=== PATIENT | female | born 1980 | race Caucasian/White ===

== ENCOUNTER 2017-04-04 19:56 | Emergency (ER) | payer SELFPAY ==
[2017-04-04 20:11] VITALS: BP 99/71; PULSE 85; RESP 16; TEMP 99.4; O2SAT 100
[2017-04-04] MEDS ORDERED: Sodium Chloride 0.9% 1,000 ML IV STA (20:21)
[2017-04-04 20:48] LABS: RBC URINE 4 /hpf (0-3); URINE BACTERIA FEW (<OCC); URINE BILIRUBIN NEGATIVE (NEGATIVE); URINE BLOOD LARGE (NEGATIVE); URINE COLOR COLORLESS (YELLOW); URINE GLUCOSE (UA) NEG (Normal); URINE KETONE NEGATIVE (NEGATIVE); URINE LEUKOCYTE ESTERASE NEG Leu/uL (Negative); URINE PROTEIN NEGATIVE (NEGATIVE); URINE UROBILINOGEN 0.2-1.0 mg/dL (0.2-1.0); WBC URINE 1 /hpf (0-5)
--- NOTE | 2017-04-04 20:48 | ED PDOC ---
HPI: General Adult Time Seen by Provider: 04/04/17 20:14 Chief Complaint (Nursing): Headache Chief Complaint (Provider): Flu-Like Symptoms History Per: Patient History/Exam Limitations: no limitations Onset/Duration Of Symptoms: Days (x5) Have you had recent travel within the past 21 days to any of the following countries: [place], [place], [place] or [place]?: No Other Location:: Traveled to [place] x1 month ago Current Symptoms Are (Timing): Still Present Additional Complaint(s): 36 year old female presents to ED with complaints of flu-like symptoms x5 days and has no past medical history. (+) subjective fever, chills, body aches, headache, stiffness in neck and upper back, and numbness in tips of extremities. 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 Notes that she travelled from [facility] x1 month ago. Denies sick contacts or other travel. PCP: [facility] Past Medical History Reviewed: Historical Data, Nursing Documentation, Vital Signs Vital Signs: Last Vital Signs Temp 99.4 F 04/04/17 20:08 Pulse 85 04/04/17 20:08 Resp 16 04/04/17 20:08 BP 99/71 L 04/04/17 20:08 Pulse Ox 100 04/04/17 20:55 - Medical History PMH: No Chronic Diseases - Family History Family History: States: Unknown Family Hx - Home Medications Home Medications: Ambulatory Orders Medication Instructions Recorded Cyclobenzaprine [Flexeril] 5 mg PO BID PRN #10 tab 04/03/15 Ibuprofen [Motrin Tab] 800 mg PO TID PRN #30 tab 04/03/15 Oxycodone HCl/Acetaminophen 1 tab PO Q6 PRN #12 tab 04/03/15 [Percocet 325 mg-5 mg] Naproxen 375 mg PO Q8 PRN #21 tab 12/25/15 - Allergies Allergies/Adverse Reactions: Allergies Allergy/AdvReac Type Severity Reaction Status Date / Time No Known Allergies Allergy Verified 04/04/17 20:08 Review of Systems ROS Statement: Except As Marked, All Systems Reviewed And Found Negative Constitutional: Positive for: Fever (Subjective), Chills, Other (body aches) Musculoskeletal: Positive for: Back Pain (Stiffness in upper back) Neurological: Positive for: Numbness (in tips of upper and lower extremities), Headache Physical Exam - Reviewed Nursing Documentation Reviewed: Yes Vital Signs Reviewed: Yes - Physical Exam Appears: Positive for: Well, Non-toxic Skin: Positive for: Normal Color Eye Exam: Positive for: Normal appearance ENT: Positive for: Normal ENT Inspection Neck: Positive for: Normal (No meningismus), Supple Cardiovascular/Chest: Positive for: Regular Rate, Rhythm. Negative for: Murmur Respiratory: Positive for: Normal Breath Sounds. Negative for: Respiratory Distress Gastrointestinal/Abdominal: Positive for: Normal Exam Back: Positive for: Normal Inspection Extremity: Positive for: Normal ROM. Negative for: Deformity Neurologic/Psych: Positive for: Alert, Oriented - Laboratory Results Result Diagrams: 04/04/17 20:40 04/04/17 20:40 - ECG O2 Sat by Pulse Oximetry: 100 (RA) Pulse Ox Interpretation: Normal Medical Decision Making Medical Decision Makin Initial impression: viral illness, not suspecting meningitis Initial plan: * Labs * Flexeril 10mg PO * NS IV * Reglan 10mg IVP * Toradol 10mg IVP * Influenza A B * UA * Re-eval 2AM: Pt' continued to have GONGORA, CT brain ordered which was negative. 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 Valium IV improved pain minimally, 2mg mophine ordered for patient comfort. Pt. reported resolutions of symptoms. at bedside explained that patient has been over-exerting herself for the past 2 days. Return precautions given, will d/c home. Scribe Attestation: Documented by Lois Schroeder acting as a scribe for Abhay Tapia MD. Scribe Attestation: All medical record entries made by the Scribe were at my direction and personally dictated by me. I have reviewed the chart and agree that the record accurately reflects my personal performance of the history, physical exam, medical decision making, and the department course for this patient. I have also personally directed, reviewed, and agree with the discharge instructions and disposition. Disposition - Clinical Impression Clinical Impression: Headache, Muscle cramp, nocturnal - Disposition Referrals: [facility] [Outside] Disposition: Routine/Home Disposition Time: 02:20 Condition: STABLE
[2017-04-04 20:49] LABS: BASO % 0.6 % (0.0-2.0); EOS # 0.1 K/uL (0.0-0.7); EOS % 1.5 % (0.0-4.0); LYMPH # 1.9 K/uL (1.0-4.3); LYMPH % 25.4 % (20.0-40.0); MEAN CELL VOLUME 91.3 fl (81.0-99.0); MEAN CORPUSCULAR HGB CONC 32.8 g/dL (33.0-37.0); MEAN PLATELET VOLUME 8.1 fl (7.2-11.7); MONO # 0.5 K/uL (0.0-0.8); MONO % 6.1 % (0.0-10.0); NEUT % 66.4 % (50.0-75.0); RED CELL DISTRIBUTION WIDTH 13.1 % (11.5-14.5); WHITE BLOOD COUNT 7.5 K/uL (4.8-10.8)
[2017-04-04 21:00] LABS: BLOOD UREA NITROGEN 7 mg/dl (7-17); CALCIUM 8.5 mg/dL (8.4-10.2); CARBON DIOXIDE 25 mmol/L (22-30); CHLORIDE 105 mmol/L (98-107); GFR AFRICAN-AMERICAN > 60; GLUCOSE,RANDOM 95 mg/dL (65-105); POTASSIUM 3.3 MMOL/L (3.6-5.0); SODIUM 138 mmol/l (132-148)
[2017-04-04] MEDS ORDERED: DiphenhydrAMINE 50 mg/ml Inj ONE (23:43)
[2017-04-04] MEDS ORDERED: DiphenhydrAMINE 50 mg/ml Inj IVP STA (23:46)
[2017-04-04] MEDS ORDERED: Promethazine 25 MG in Sodium Chloride 0.9% 50 ML IVPB STA (23:50)
[2017-04-05] MEDS ORDERED: diaZEpam 10 mg/2 ml Inj ONE (00:23)
--- NOTE | 2017-04-05 09:14 | CT ---
PROCEDURE: CT HEAD WITHOUT CONTRAST. HISTORY: L sided GONGORA COMPARISON: None available. TECHNIQUE: Axial computed tomography images were obtained through the head/brain without intravenous contrast. Radiation dose: Total exam DLP = 737 mGy-cm. This CT exam was performed using one or more of the following dose reduction techniques: Automated exposure control, adjustment of the mA and/or kV according to patient size, and/or use of iterative reconstruction technique. FINDINGS: HEMORRHAGE: No intracranial hemorrhage. BRAIN: No mass effect or edema. No atrophy or chronic microvascular ischemic changes. VENTRICLES: Unremarkable. No hydrocephalus. CALVARIUM: Unremarkable. PARANASAL SINUSES: Mild paranasal sinus mucoperiosteal thickening. MASTOID AIR CELLS: Unremarkable as visualized. No inflammatory changes. OTHER FINDINGS: None. IMPRESSION: No acute hemorrhage.
== END 2017-04-05 02:34 | disposition home or self-care (01) ==
LOC: H.ER 19:56
DX: R51 Headache (principal); R25.2 Cramp and spasm; R20.2 Paresthesia of skin; R50.9 Fever, unspecified; M54.9 Dorsalgia, unspecified; B34.9 Viral infection, unspecified
CPT/HCPCS: 70450; 80048; 81003; 81025; 85025; 87804; 96361; 96374; 96375; 99285; J1200; J1885; J2550; J2765; J7040

== ENCOUNTER 2017-07-06 14:59 | Observation (INO) | payer SELFPAY ==
[2017-07-06 15:16] VITALS: PULSE 78; RESP 16; O2SAT 98
[2017-07-06 15:54] VITALS: TEMP 99
[2017-07-06] MEDS ORDERED: Sodium Chloride 0.9% 1,000 ML IV STA (16:05)
[2017-07-06] MEDS ORDERED: Iohexol 240 (50 ml) PO ONE (16:05)
--- NOTE | 2017-07-06 16:18 | ED PDOC ---
HPI: Back Time Seen by Provider: 07/06/17 15:50 Chief Complaint (Nursing): Back Pain Chief Complaint (Provider): Back Pain, Chest Pain, Abdominal Pain History Per: Patient History/Exam Limitations: no limitations Current Symptoms Are (Timing): Still Present Additional Complaint(s): Bret Faulkner, a 36 year old female, presents to the ED complaining of back pain that radiates to her lower abdomen x1 day. The patient also states that she has also had some dysuria and frequency. The patient also reports that she has been experiencing chest pain and bilateral calf pain associated with nausea x8 days. Patient states that she has taken no medications for pain. Denies vomiting, diarrhea, vision changes, fever. No PMD Past Medical History Reviewed: Historical Data, Nursing Documentation, Vital Signs Vital Signs: Last Vital Signs Temp 99 F 07/06/17 15:13 Pulse 78 07/06/17 15:13 Resp 16 07/06/17 15:13 BP 120/71 07/06/17 15:13 Pulse Ox 98 07/06/17 15:13 - Medical History PMH: No Chronic Diseases - Family History Family History: States: Unknown Family Hx - Home Medications Home Medications: Ambulatory Orders Medication Instructions Recorded Cyclobenzaprine [Flexeril] 5 mg PO BID PRN #10 tab 04/03/15 Ibuprofen [Motrin Tab] 800 mg PO TID PRN #30 tab 04/03/15 Oxycodone HCl/Acetaminophen 1 tab PO Q6 PRN #12 tab 04/03/15 [Percocet 325 mg-5 mg] Naproxen 375 mg PO Q8 PRN #21 tab 12/25/15 - Allergies Allergies/Adverse Reactions: Allergies Allergy/AdvReac Type Severity Reaction Status Date / Time No Known Allergies Allergy Verified 04/04/17 20:08 Review of Systems ROS Statement: Except As Marked, All Systems Reviewed And Found Negative Constitutional: Negative for: Fever Eyes: Negative for: Vision Change Cardiovascular: Positive for: Chest Pain (x8 days) Gastrointestinal: Positive for: Nausea, Abdominal Pain. Negative for: Vomiting , Diarrhea, Constipation Genitourinary Female: Positive for: Dysuria, Frequency Musculoskeletal: Positive for: Back Pain (back pain radiating to lower abdomen x1 day), Other (bilateral calf pain) Neurological: Positive for: Dizziness Physical Exam - Reviewed Nursing Documentation Reviewed: Yes Vital Signs Reviewed: Yes - Physical Exam Appears: Positive for: Non-toxic, No Acute Distress Head Exam: Positive for: ATRAUMATIC, NORMAL INSPECTION, NORMOCEPHALIC Skin: Positive for: Normal Color, Warm, Dry Eye Exam: Positive for: Normal appearance, EOMI, PERRL ENT: Positive for: Normal ENT Inspection Neck: Positive for: Normal, Painless ROM, Supple Cardiovascular/Chest: Positive for: Regular Rate, Rhythm, Chest Non Tender. Negative for: Murmur, Tachycardia Respiratory: Positive for: Normal Breath Sounds. Negative for: Rales, Rhonchi, Wheezing, Respiratory Distress Gastrointestinal/Abdominal: Positive for: Bowel Sounds, Soft, Tenderness (mild abdominal tenderness). Negative for: Mass, Guarding, Rebound Back: Negative for: Normal Inspection (mild upper back tenderness), L CVA Tenderness, R CVA Tenderness Extremity: Positive for: Normal ROM, Calf Tenderness (mild calf tenderness; no erythema; no edema). Negative for: Tenderness, Pedal Edema, Deformity, Swelling - Laboratory Results Result Diagrams: 07/06/17 16:10 07/06/17 16:57 Interpretation Of Abn Labs: urine wbc - ECG ECG: Positive for: Interpreted By Me, Viewed By Me ECG Rhythm: Positive for: Normal QRS, Normal ST Segment, Sinus Rhythm O2 Sat by Pulse Oximetry: 98 (RA) Pulse Ox Interpretation: Normal - Radiology X-Ray: Read By Radiologist X-Ray Interpretation: No Acute Disease - CT Scan/US US Other Rad Studies (CT/US): Read By Radiologist Other Rad Interpretation: no acute - Progress ED Course And Treament: 1913: Dr. Cortes to fu on ct and dispo pt. Medical Decision Making Medical Decision Makin Initial Impression: 36 year old female presenting with chest pain, abdominal pain, upper back pain Initial Plan: * VBG * CT ABD&PELV * EKG * Comp Metabolic Panel * Lipase * Troponin * Upreg * Udip * CBC * D-dimer * CXR * NS 1000mls IV 1000mls/hr * Omnipaque 50ml PO * Toradol 15mg PO * Zofran 4mg IV * Blood Culture * Urine Culture * Admit 1604 * Urinalysis * US Duplex lower extremities * Reevaluation ___ Scribe Attestation: Documented by Danielle Snyder acting as a scribe for Pawel Orozco MD. Scribe Attestation: All medical record entries made by the Scribe were at my direction and personally dictated by me. I have reviewed the chart and agree that the record accurately reflects my personal performance of the history, physical exam, medical decision making, and the department course for this patient. I have also personally directed, reviewed, and agree with the discharge instructions and disposition. ED OBSERVATION Date of observation admission: 07/06/17 Time of observation admission: 16:04 - Observation admission statement Patient is being placed in observation because:: Pain management and pending CT ABD&PELVIS. - Goals of Observation Goals of observation are:: pain eval - Progress Note Progress Note: 07/06/17 17:28 Continues observation, pending CT Disposition - Clinical Impression Clinical Impression: UTI (urinary tract infection) - Patient ED Disposition Is Patient to be Admitted: Transfer of Care - Disposition Disposition: Transfer of Care Disposition Time: 19:14 Condition: FAIR - POA Present On Arrival: None
[2017-07-06 17:04] LABS: BASO # 0.1 K/uL (0.0-0.2); BASO % 0.8 % (0.0-2.0); EOS # 0.1 K/uL (0.0-0.7); EOS % 0.8 % (0.0-4.0); HEMOGLOBIN 11.3 g/dL (12.0-16.0); LYMPH # 2.8 K/uL (1.0-4.3); LYMPH % 24.7 % (20.0-40.0); MEAN CELL VOLUME 90.2 fl (81.0-99.0); MEAN CORPUSCULAR HEMOGLOBIN 28.9 pg (27.0-31.0); MEAN PLATELET VOLUME 8.4 fl (7.2-11.7); MONO # 0.8 K/uL (0.0-0.8); MONO % 6.8 % (0.0-10.0); NEUT # 7.5 K/uL (1.8-7.0); NEUT % 66.9 % (50.0-75.0); RBC 3.93 Mil/uL (3.80-5.20); RED CELL DISTRIBUTION WIDTH 14.2 % (11.5-14.5); WHITE BLOOD COUNT 11.2 K/uL (4.8-10.8)
[2017-07-06 17:05] LABS: SQUAMOUS EPITHIAL 4 /hpf (0-5); URINE BILIRUBIN NEGATIVE (NEGATIVE); URINE BLOOD SMALL (NEGATIVE); URINE CLARITY SLIGHTY-CLOUDY (Clear); URINE COLOR STRAW (YELLOW); URINE GLUCOSE (UA) NEG (Normal); URINE LEUKOCYTE ESTERASE LARGE Leu/uL (Negative); URINE NITRATE NEGATIVE (NEGATIVE); URINE PROTEIN NEGATIVE (NEGATIVE); URINE UROBILINOGEN 0.2-1.0 mg/dL (0.2-1.0)
[2017-07-06 17:14] LABS: ALB/GLOB RATIO 1.3 (1.0-2.1); ALT/SGPT 38 U/L (9-52); AST/SGOT 27 U/L (14-36); BLOOD UREA NITROGEN 8 mg/dl (7-17); GFR AFRICAN-AMERICAN > 60; GFR NON-AFRICAN AMERICAN > 60; LIPASE 100 U/L (23-300)
--- NOTE | 2017-07-06 17:15 | RAD ---
HISTORY: pain COMPARISON: No prior. FINDINGS: LUNGS: No active pulmonary disease. PLEURA: No significant pleural effusion identified, no pneumothorax apparent. CARDIOVASCULAR: Normal. OSSEOUS STRUCTURES: No significant abnormalities. VISUALIZED UPPER ABDOMEN: Normal. OTHER FINDINGS: None. IMPRESSION: No active disease.
--- NOTE | 2017-07-06 17:19 | US ---
PROCEDURE: Bilateral lower extremity venous duplex Doppler. HISTORY: r/o dvt COMPARISON: None available. TECHNIQUE: Bilateral common femoral, superficial femoral, popliteal and posterior tibial veins were evaluated. Flow was assessed with color Doppler, compressibility, assessment of phasic flow and augmentation response. FINDINGS: COMMON FEMORAL VEIN: Right CFV: Unremarkable. Left CFV: Unremarkable. SUPERFICIAL FEMORAL VEIN: Right SFV: Unremarkable. Left SFV: Unremarkable. POPLITEAL VEIN: Right Popliteal: Unremarkable. Left Popliteal: Unremarkable. POSTERIOR TIBIAL VEIN: Right PTV: Unremarkable. Left PTV: Unremarkable. OTHER FINDINGS: None. IMPRESSION: No evidence of deep venous thrombosis.
[2017-07-06] MEDS ORDERED: Iohexol 240 (50 ml) ONE (17:26)
[2017-07-06] MEDS ORDERED: Iohexol 300 100 ML IJ ONE (19:52)
[2017-07-06] MEDS ORDERED: Sodium Chloride 0.9% 50 ML IV ONE (19:52)
--- NOTE | 2017-07-06 20:03 | ED PDOC ---
- Laboratory Results Result Diagrams: 07/06/17 16:10 07/06/17 16:57 - ECG O2 Sat by Pulse Oximetry: 98 (RA) Pulse Ox Interpretation: Normal Medical Decision Making Medical Decision Making: Patient signed out to provider at [address] 2143 CT Abdomen and Pelvis With Intravenous Contrast Dictated and Authenticated by: Char Young MD EXAM DATE/TIME: 07/06/2017 4:04 PM CLINICAL HISTORY: 36 years old, female; Pain; Abdominal pain; Generalized; Additional info: Abd pain TECHNIQUE: Axial computed tomography images of the abdomen and pelvis with intravenous contrast. All CT scans at this facility use one or more dose reduction techniques, viz.: automated exposure control; ma/kV adjustment per patient size (including targeted exams where dose is matched to indication; i.e. head); or iterative reconstruction technique. Coronal and sagittal reformatted images were created and reviewed. CONTRAST: 90 mL of Omnipaque administered intravenously. COMPARISON: None is available. FINDINGS: LOWER THORAX: No infiltrate seen in the lung bases. ABDOMEN: LIVER: Fatty infiltration of the liver. GALLBLADDER AND BILE DUCTS: No CT evidence of acute cholecystitis. No evidence of significant biliary ductal dilatation. PANCREAS: No CT evidence of acute pancreatitis. SPLEEN: No acute abnormality of the spleen identified. ADRENALS: No acute abnormality of the adrenal glands identified. KIDNEYS AND URETERS: No acute abnormality of the kidneys identified. No evidence of significant hydrouereteronephrosis. STOMACH AND BOWEL: Segmental areas of wall thickening seen in the colon, involving the hepatic flexure, splenic flexure and descending colon. Findings are most likely secondary to underdistention/incomplete distension versus mild, segmental colitis. Otherwise , no significant abnormality of the bowel is identified. No evidence of bowel obstruction. APPENDIX: Appendix is seen, and is within normal limits in appearance. PELVIS: BLADDER: Moderate diffuse thickening of the bladder wall. REPRODUCTIVE: IUD noted within the uterus. No evidence of large adnexal masses. ABDOMEN and PELVIS: INTRAPERITONEAL SPACE: No evidence of free intraperitoneal air or fluid. BONES/JOINTS: Sclerosis is seen involving the sacroiliac joints bilaterally, greater on the right. Findings could be secondary to degenerative changes versus asymmetric sacroiliitis. No acute fractures or other acute bony abnormality visualized. SOFT TISSUES: Small umbilical hernia, containing only fat. VASCULATURE: No evidence of abdominal aortic aneurysm. No evidence of periaortic hemorrhage. LYMPH NODES: No evidence of diffuse lymphadenopathy. IMPRESSION: - Diffuse bladder wall thickening. This is a nonspecific finding, but can be seen with cystitis. Recommend clinical correlation. - Probable underdistention versus mild segmental areas of colitis. Recommend clinical correlation. - Otherwise, no evidence of significant acute process. - See above for remaining findings. 2204 Labs reviewed indicative of UTI. Patient is stable for discharge home and advised to follow up with the clinic. Scribe Attestation Documented by Danielle Snyder acting as a scribe for Blane Cortes MD. Provider Attestation All medical record entries made by the Scribe were at my direction and personally dictated by me. I have reviewed the chart and agree that the record accurately reflects my personal performance of the history, physical exam, medical decision making, and the department course for this patient. I have also personally directed, reviewed, and agree with the discharge instructions and disposition. Disposition Counseled Patient/Family Regarding: Studies Performed, Diagnosis, Need For Followup - Clinical Impression Clinical Impression: UTI (urinary tract infection), Atypical chest pain - POA Present On Arrival: None - Disposition Disposition: Routine/Home Disposition Time: 21:43 Condition: STABLE
[2017-07-06] MEDS ORDERED: cefTRIAXone (Rocephin) 1 gm Inj ONE (22:19)
[2017-07-06 23:48] VITALS: BP 116/74
--- NOTE | 2017-07-07 09:59 | CT ---
PROCEDURE: CT abdomen pelvis dated 07/06/2017. HISTORY: abd pain COMPARISON: None. TECHNIQUE: Contiguous axial images of the abdomen and pelvis performed following oral and intravenous injection of approximately 90 cc Omnipaque 300 contrast material. Coronal and Sagittal reformats generated. Radiation dose: Total exam DLP = 291.08 mGy-cm. This CT exam was performed using one or more of the following dose reduction techniques: Automated exposure control, adjustment of the mA and/or kV according to patient size, and/or use of iterative reconstruction technique. FINDINGS: LOWER THORAX: Unremarkable. LIVER: Liver exhibits normal size. Mild diffuse fatty hepatic infiltration. No obvious hepatic mass collection or calcification. Portal and splenic veins are opacified. GALLBLADDER AND BILE DUCTS: Gallbladder is incompletely distended. No obvious intraluminal gallbladder calculi. PANCREAS: Unremarkable. No mass. No ductal dilatation. SPLEEN: Unremarkable. No splenomegaly. ADRENALS: Unremarkable. KIDNEYS AND URETERS: Unremarkable. No stone or hydronephrosis. BLADDER: Urinary bladder is incompletely distended which may in part account for thick-walled appearance however cystitis must be excluded given the the the wall thickness and mild enhancement REPRODUCTIVE: In situ Copper-T IUD APPENDIX: What could represent the appendix best seen on coronal image number [id number] appears grossly unremarkable. BOWEL: Unremarkable. No obstruction. No gross mural thickening. Moderate amount of stool seen throughout the large bowel consistent with fecal retention/constipation. PERITONEUM: No gross free intraperitoneal air LYMPH NODES: No significant adenopathy. . Questionable few small lymph nodes right lower quadrant of the abdomen VASCULATURE: Unremarkable. No aortic aneur constipation. . . BONES: No fracture or destructive lesion. Mild levoscoliosis of the thoracolumbar junction. OTHER FINDINGS: None. IMPRESSION: Urinary bladder wall thickening in part due to incomplete distention however cystitis must be considered. No evidence of acute appendicitis. Findings consistent with mild constipation. In situ Copper-T IUD. Small fat containing umbilical hernia pulmonary room
--- NOTE | 2017-07-07 10:41 | CARD ---
APPROVED REPORT EKG Measurement Heart [id number] <Conclusion> Normal sinus rhythm Normal ECG
== END 2017-07-06 23:40 | disposition home or self-care (01) ==
LOC: H.ER 14:59 → H.EROBSV 16:04
PROVIDERS: ADMIT Emergency Medicine; ATTEND Emergency Medicine
DX: N39.0 Urinary tract infection, site not specified (principal)
CPT/HCPCS: 36415; 71010; 74177; 80053; 81003; 83690; 84484; 85025; 85378; 87040; 87086; 87181; 93005; 93970; 96374; 99283; G0378; J0696; J1885; J2405; J7040; Q9966; Q9967

== ENCOUNTER 2017-08-05 17:19 | Observation (INO) | payer SELFPAY ==
[2017-08-05 17:36] VITALS: TEMP 98.8; O2SAT 98
[2017-08-05] MEDS ORDERED: Naproxen 500 MG TAB PO STA (18:24)
--- NOTE | 2017-08-05 18:36 | ED PDOC ---
HPI: Abdomen Time Seen by Provider: 08/05/17 17:39 Chief Complaint (Nursing): Back Pain Chief Complaint (Provider): Abdominal Pain and Headache History Per: Patient History/Exam Limitations: no limitations Onset/Duration Of Symptoms: Days (Abdominal pain two days, headache one day) Additional Complaint(s): Patient is a 36 y/o female complaining of abdominal pain that began two days ago , in addition to a headache which began one day ago. She reports similar abdominal pain and diagnosed in the past with a urinary tract infection, but denies undergoing past surgeries or having preexisting medical conditions. She also denies fever, nausea, vomiting, visual changes, constipation, and diarrhea. Past Medical History Reviewed: Historical Data, Nursing Documentation, Vital Signs Vital Signs: Last Vital Signs Temp 98.8 F 08/05/17 17:32 Pulse 80 08/05/17 22:50 Resp 16 08/05/17 22:50 BP 104/62 08/05/17 22:50 Pulse Ox 98 08/05/17 22:59 - Medical History PMH: No Chronic Diseases - Surgical History Surgical History: No Surg Hx - Family History Family History: States: Unknown Family Hx - Social History Current smoker - smoking cessation education provided: No Alcohol: None Drugs: Denies - Home Medications Home Medications: Ambulatory Orders Medication Instructions Recorded Naproxen [Naprosyn] 500 mg PO BID PRN #15 tablet 08/05/17 - Allergies Allergies/Adverse Reactions: Allergies Allergy/AdvReac Type Severity Reaction Status Date / Time No Known Allergies Allergy Verified 04/04/17 20:08 Review of Systems ROS Statement: Except As Marked, All Systems Reviewed And Found Negative Constitutional: Negative for: Fever Eyes: Negative for: Vision Change Gastrointestinal: Positive for: Abdominal Pain. Negative for: Nausea, Vomiting , Diarrhea, Constipation Genitourinary Female: Negative for: Dysuria, Frequency, Incontinence, Hematuria Neurological: Positive for: Headache Physical Exam - Reviewed Nursing Documentation Reviewed: Yes Vital Signs Reviewed: Yes - Physical Exam Appears: Positive for: Non-toxic, No Acute Distress Head Exam: Positive for: ATRAUMATIC, NORMAL INSPECTION, NORMOCEPHALIC Skin: Positive for: Normal Color, Warm, Dry Eye Exam: Positive for: Normal appearance, EOMI, PERRL. Negative for: Conjunctival injection ENT: Positive for: Normal ENT Inspection Neck: Positive for: Normal, Supple Cardiovascular/Chest: Positive for: Regular Rate, Rhythm. Negative for: Murmur Respiratory: Positive for: Normal Breath Sounds. Negative for: Accessory Muscle Use, Respiratory Distress Gastrointestinal/Abdominal: Positive for: Soft, Tenderness (suprapubic region). Negative for: Normal Exam Neurologic/Psych: Positive for: Alert, body design checker II-XII (Intact), Oriented (x3), Cerebellar Tests (Normal), Other (Finger to nose test intact. ). Negative for: Motor/Sensory Deficits, Facial Droop - ECG O2 Sat by Pulse Oximetry: 98 (RA) Pulse Ox Interpretation: Normal Medical Decision Making Medical Decision Making: Time: 18:24 Initial impression: Headache and Urinary Tract Infection Initial plan: ED Urine Dipstick ED Urine Urinalysis Stat Upon reevaluation of old charts reviewed, patient has had transvaginal ultrasound in December 2015, normal head CT in March 2017, and CT abdomen/pelvis last month all with no significant abnormalities. --admit to hospital routine ED Obs for abdominal pain and headache *Any further documentation will be included within the ED Obs section of the chart Scribe Attestation: Documented by Gardenia Perez and Danielle Snyder, acting as a scribe for Cass Lemus MD Provider Scribe Attestation: All medical record entries made by the Scribe were at my direction and personally dictated by me. I have reviewed the chart and agree that the record accurately reflects my personal performance of the history, physical exam, medical decision making, and the department course for this patient. I have also personally directed, reviewed, and agree with the discharge instructions and disposition. ED OBSERVATION Time of observation admission: 18:00 - Observation admission statement Patient is being placed in observation because:: GONGORA, abdominal pain, reevaluation - Progress Note Progress Note: 08/05/17 1930 patient is resting comfortably 08/05/17 20:23 Pelvis transvaginal ultrasound 08/05/17 21:00 patient is resting comfortably, pending ultrasound 08/05/17 22:57 Pt sleeping comfortably during ED observation. [id number] US Pelvis Complete, Transabdominal CLINICAL HISTORY: 36 years old, female; Pain; Pelvic pain; Additional info: L adnexal pain TECHNIQUE: Real-time transabdominal pelvic ultrasound (complete) with image documentation. COMPARISON: CT - ABD PELVIS PO IV CON 07/06/2017 8:17:41 PM FINDINGS: Uterus/cervix: Uterus measures 8.8 x 4.7 x 5.5 cm in size. No myometrial mass. Endometrium: 1.0 cm in thickness. IUD in place. Right ovary: 2.7 x 2.2 x 3.0 cm in size. No mass. Small follicles. Normal flow. Left ovary: 2.6 x 2.0 x 2.5 cm in size. No mass. Small follicles. Normal flow. Free fluid: No significant free fluid. Bladder: Unremarkable as visualized. IMPRESSION: 1. No acute findings. 2. Non-acute findings are described above. 0 EXAM: US Pelvis, Transvaginal CLINICAL HISTORY: 36 years old, female; Pain; Pelvic pain; Additional info: L adnexal pain TECHNIQUE: Real-time transvaginal pelvic ultrasound (complete) with image documentation. Transvaginal imaging was used for better evaluation of the endometrium and adnexa. COMPARISON: CT - ABD PELVIS PO IV CON 07/06/2017 8:17:41 PM FINDINGS: Uterus/cervix: Uterus measures 8.8 x 4.7 x 5.5 cm in size. No myometrial mass. Endometrium: 1.0 cm in thickness. IUD in place. Right ovary: 2.7 x 2.2 x 3.0 cm in size. No mass. Small follicles. Normal flow. Left ovary: 2.6 x 2.0 x 2.5 cm in size. No mass. Small follicles. Normal flow. Free fluid: No significant free fluid. Bladder: Empty bladder which cannot be evaluated with this probe. IMPRESSION: 1. No acute findings. 2. Non-acute findings are described above Disposition - Clinical Impression Clinical Impression: Headache, Pelvic pain - Disposition Disposition: Routine/Home Disposition Time: 22:58 Condition: STABLE
[2017-08-05] MEDS ORDERED: Naproxen 500 MG TAB PO ONE (18:38)
[2017-08-05 20:09] LABS: RBC URINE 1 /hpf (0-3); URINE BACTERIA RARE (<OCC); URINE BILIRUBIN NEGATIVE (NEGATIVE); URINE BLOOD NEGATIVE (NEGATIVE); URINE COLOR YELLOW (YELLOW); URINE GLUCOSE (UA) NEG (Normal); URINE KETONE NEGATIVE (NEGATIVE); URINE LEUKOCYTE ESTERASE SMALL Leu/uL (Negative); URINE PROTEIN NEGATIVE (NEGATIVE); URINE UROBILINOGEN 0.2-1.0 mg/dL (0.2-1.0); WBC URINE 2 /hpf (0-5)
--- NOTE | 2017-08-05 22:58 | US ---
EXAM: US Pelvis Complete, Transabdominal CLINICAL HISTORY: 36 years old, female; Pain; Pelvic pain; Additional info: L adnexal pain TECHNIQUE: Real-time transabdominal pelvic ultrasound (complete) with image documentation. COMPARISON: CT - ABD PELVIS PO IV CON 07/06/2017 8:17:41 PM FINDINGS: Uterus/cervix: Uterus measures 8.8 x 4.7 x 5.5 cm in size. No myometrial mass. Endometrium: 1.0 cm in thickness. IUD in place. Right ovary: 2.7 x 2.2 x 3.0 cm in size. No mass. Small follicles. Normal flow. Left ovary: 2.6 x 2.0 x 2.5 cm in size. No mass. Small follicles. Normal flow. Free fluid: No significant free fluid. Bladder: Unremarkable as visualized. IMPRESSION: 1.No acute findings. 2.Non-acute findings are described above. EXAM: US Pelvis, Transvaginal CLINICAL HISTORY: 36 years old, female; Pain; Pelvic pain; Additional info: L adnexal pain TECHNIQUE: Real-time transvaginal pelvic ultrasound (complete) with image documentation. Transvaginal imaging was used for better evaluation of the endometrium and adnexa. COMPARISON: CT - ABD PELVIS PO IV CON 07/06/2017 8:17:41 PM FINDINGS: Uterus/cervix: Uterus measures 8.8 x 4.7 x 5.5 cm in size. No myometrial mass. Endometrium: 1.0 cm in thickness. IUD in place. Right ovary: 2.7 x 2.2 x 3.0 cm in size. No mass. Small follicles. Normal flow. Left ovary: 2.6 x 2.0 x 2.5 cm in size. No mass. Small follicles. Normal flow. Free fluid: No significant free fluid. Bladder: Empty bladder which cannot be evaluated with this probe.
[2017-08-05 23:07] VITALS: BP 104/62; PULSE 80; RESP 16
== END 2017-08-05 22:59 | disposition home or self-care (01) ==
LOC: H.ER 17:19 → H.EROBSV 18:00
PROVIDERS: ADMIT Emergency Medicine; ATTEND Emergency Medicine
DX: N39.0 Urinary tract infection, site not specified (principal); R51 Headache; R10.2 Pelvic and perineal pain
CPT/HCPCS: 76830; 76856; 81003; 81025; 99284; G0378

== ENCOUNTER 2017-12-22 22:43 | Emergency (ER) | payer OTHER ==
[2017-12-22 23:00] VITALS: BP 115/56; PULSE 88; RESP 18; TEMP 98.3; O2SAT 100
[2017-12-22] MEDS ORDERED: Naproxen 500 MG TAB PO STA (23:17)
[2017-12-22] MEDS ORDERED: Naproxen 500 MG TAB PO ONE (23:56)
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
--- NOTE | 2017-12-23 10:39 | RAD ---
PROCEDURE: Radiographs of the Lumbar Spine. HISTORY: pain COMPARISON: No prior. FINDINGS: BONES: Levoconvex curvature of the lumbar spine centered at L2-3. No listhesis. No fracture. DISC SPACES: Unremarkable. OTHER FINDINGS: Intrauterine device in place. IMPRESSION: Unremarkable radiographs of the lumbar spine.
== END 2017-12-23 00:32 | disposition home or self-care (01) ==
LOC: H.ER 22:43
DX: M54.9 Dorsalgia, unspecified (principal)

== ENCOUNTER 2018-02-10 00:02 | Emergency (ER) | payer OTHER ==
[2018-02-10 00:17] VITALS: BP 111/77; PULSE 89; RESP 16; TEMP 98.3; O2SAT 100
[2018-02-10] MEDS ORDERED: Naproxen 500 MG TAB PO STA (00:37)
[2018-02-10] MEDS ORDERED: Naproxen 500 MG TAB PO ONE (00:53)
--- NOTE | 2018-02-10 01:35 | ED PDOC ---
HPI: Chest Pain Time Seen by Provider: 02/10/18 00:08 Chief Complaint (Nursing): Chest Pain Chief Complaint (Provider): Chest, Back, and Arm Pain History Per: Patient History/Exam Limitations: no limitations Onset/Duration Of Symptoms: Days Quality: Aching, "Pain" Associated Symptoms: denies: Nausea, Dyspnea, Diaphoresis, Syncope Additional Complaint(s): 37 y/o female presents to the ED for evaluation of right arm pain for the last 15 days. Pain is worse with movement and intermittent. Patient also reports chest pain and diffuse upper back pain x 4 days that has also been intermittent. Patient reports history of similar aches that sometimes resolves spontaneously and sometimes requires "relaxing" medications. Patient reports taking Tylenol at home with minimal improvement, last dose last night. Patient denies nausea, vomiting, shortness of breath, cough, rash, abdominal pain, dizziness, headache, visual changes, falls/trauma, exertional activity, leg swelling, calf tenderness, or any further medical complaints. LMP: 01/27/2018 Past Medical History Reviewed: Historical Data, Nursing Documentation, Vital Signs Vital Signs: Last Vital Signs Temp 98.3 F 02/10/18 00:04 Pulse 89 02/10/18 00:04 Resp 16 02/10/18 00:04 BP 111/77 02/10/18 00:04 Pulse Ox 100 02/10/18 03:19 - Medical History PMH: No Chronic Diseases - Surgical History Surgical History: No Surg Hx - Family History Family History: States: Unknown Family Hx - Social History Current smoker - smoking cessation education provided: No Alcohol: None Drugs: Denies - Home Medications Home Medications: Ambulatory Orders Medication Instructions Recorded Naproxen [Naprosyn] 500 mg PO BID PRN #15 tablet 08/05/17 Cyclobenzaprine [Cyclobenzaprine 10 mg PO TID PRN #15 tab 12/23/17 HCl] Naproxen 500 mg PO BID #30 tab 12/23/17 Meloxicam [Mobic] 15 mg PO DAILY #14 tab 02/10/18 - Allergies Allergies/Adverse Reactions: Allergies Allergy/AdvReac Type Severity Reaction Status Date / Time No Known Allergies Allergy Verified 12/22/17 22:56 Review of Systems ROS Statement: Except As Marked, All Systems Reviewed And Found Negative (As per HPI, otherwise negative) Cardiovascular: Positive for: Chest Pain Musculoskeletal: Positive for: Arm Pain (right), Back Pain (upper) Physical Exam - Reviewed Nursing Documentation Reviewed: Yes Vital Signs Reviewed: Yes - Physical Exam Appears: Positive for: Well, Non-toxic, No Acute Distress Head Exam: Positive for: ATRAUMATIC, NORMOCEPHALIC Skin: Positive for: Normal Color, Warm, Dry Eye Exam: Positive for: EOMI, PERRL ENT: Positive for: Normal ENT Inspection Neck: Positive for: Painless ROM, Supple Cardiovascular/Chest: Positive for: Regular Rate, Rhythm, Other (reproducible anterior chest wall tenderness). Negative for: Murmur, Bradycardia, Tachycardia Respiratory: Positive for: Normal Breath Sounds (speaking in full sentences, respirations even and nonlabored.). Negative for: Decreased Breath Sounds, Accessory Muscle Use, Stridor, Wheezing, Respiratory Distress Gastrointestinal/Abdominal: Positive for: Bowel Sounds, Soft. Negative for: Tenderness, Distended, Guarding Back: Positive for: Other (Bilateral parathoracic and trapezius tenderness. Straight leg raise (-) bilaterally.). Negative for: L CVA Tenderness, R CVA Tenderness, Vertebral Tenderness, Muscle Spasm Extremity: Positive for: Normal ROM. Negative for: Tenderness, Pedal Edema, Calf Tenderness, Deformity Neurologic/Psych: Positive for: Alert, automatic glove former II-XII (grossly intact), Oriented (x3 ), Cerebellar Tests (intact), Gait (steady in ED). Negative for: Aphasia, Facial Droop - ECG O2 Sat by Pulse Oximetry: 100 (RA) Pulse Ox Interpretation: Normal Medical Decision Making Medical Decision Making: Time: 00:40 Initial Impression: musculoskeletal chest, arm and back pain Plan: -Chest x-ray -Flexeril 10mg PO (Patient is not driving home) -Naproxen 500mg PO -Re-evaluation -EKG reviewed: SR @ 85bpm (-) ST elevations (-) axis deviation 0230 Upreg: negative Patient pending CXR 0247 CXR reviewed, no acute disease as read by Tonya GONZALES Patient notified that a radiologist will review the ED reading if any change in treatment is needed we will contact you On re-evaluation, patient reports improvement of symptoms, denies any chest pain or discomfort at his time. On exam, patient remains AAOx3, in no acute distress. Lungs clear to auscultation, cardiac RRR, abdomen soft, non-tender, repeat neuro exam shows no focal findings. VSS. Given history and physical exam , patient's symptoms do not seem seem to be cardiac in nature. Lab results reviewed/Diagnostic results d/w the patient in great detail. Diagnosis of musculoskeletal arm and chest pain d/w the patient. Based on history, exam and diagnostic results, plan will be for outpatient follow up. Patient instructed to follow-up with pmd / referral provided / the clinic in 1- 2 days without fail. Advised to take medication as prescribed. Return to the emergency room at any time for any new or worsening symptoms. Patient states she fully agrees with and understands discharge instructions. States that she agrees with the plan and disposition. Verbalized and repeated discharge instructions and plan. I have given the patient opportunity to ask any additional questions. Scribe Attestation: Documented by Bran Stubbs acting as a scribe for KAREN Medrano. Scribe Attestation: All medical record entries made by the Scribe were at my direction and personally dictated by me. I have reviewed the chart and agree that the record accurately reflects my personal performance of the history, physical exam, medical decision making, and the department course for this patient. I have also personally directed, reviewed, and agree with the discharge instructions and disposition. Disposition - Clinical Impression Clinical Impression: Musculoskeletal chest pain, Musculoskeletal arm pain - Patient ED Disposition Is Patient to be Admitted: No Counseled Patient/Family Regarding: Studies Performed, Diagnosis, Need For Followup, Rx Given - Disposition Referrals: [facility] [Outside] Disposition: Routine/Home Disposition Time: 02:51 Condition: FAIR Prescriptions: Meloxicam [Mobic] 15 mg PO DAILY #14 tab Instructions: Chest Pain That Is Not Caused by the Heart (DC), Muscle and Bone Pain (DC) Forms: [employer] (Wolof) Print Language: TAJIK - POA Present On Arrival: None
--- NOTE | 2018-02-10 09:18 | RAD ---
HISTORY: CP COMPARISON: Chest dated 07/06/2017 documents TECHNIQUE: Chest PA and lateral FINDINGS: LUNGS: No active pulmonary disease. PLEURA: No significant pleural effusion identified. No pneumothorax apparent. CARDIOVASCULAR: Normal. OSSEOUS STRUCTURES: No significant abnormalities. VISUALIZED UPPER ABDOMEN: Normal. OTHER FINDINGS: None. IMPRESSION: No active disease.
== END 2018-02-10 03:19 | disposition home or self-care (01) ==
LOC: H.ER 00:02
DX: R07.9 Chest pain, unspecified (principal); M79.601 Pain in right arm

== ENCOUNTER 2018-03-15 11:02 | Emergency (ER) | payer OTHER ==
[2018-03-15 11:18] VITALS: TEMP 97; O2SAT 100; BMI 23.4
[2018-03-15] MEDS ORDERED: Sodium Chloride 0.9% 1,000 ML IV STA (11:55)
--- NOTE | 2018-03-15 11:55 | ED PDOC ---
HPI: General Adult Time Seen by Provider: 03/15/18 11:35 Chief Complaint (Nursing): Chest Pain Chief Complaint (Provider): Leg, back and chest pain History Per: Patient History/Exam Limitations: no limitations Onset/Duration Of Symptoms: Persistent, Worse Since (3 days) Have you had recent travel within the past 21 days to any of the following countries: [place], [place], [place] or [place]?: No Current Symptoms Are (Timing): Still Present Additional History Per: Patient Additional Complaint(s): 37yo female with no known past medical history, presents to ED with complaints of bilateral leg pain, anterior chest pain and upper back pain for the past 3 months. Patient states she has had such pains for "long time" but the symptoms have worsened over the past 3 days. She denies any new trauma or injuries to the area. She also denies any fever, chills, shortness of breath, vomiting, diarrhea, weakness, numbness, bowel or bladder dysfunction. She has no other medical complaints. Has had er visits for the same and takes naproxen. No recent travel, control. Past Medical History Reviewed: Historical Data, Nursing Documentation, Vital Signs Vital Signs: Last Vital Signs Temp 97 F L 03/15/18 11:17 Pulse 79 03/15/18 11:17 Resp BP 126/86 03/15/18 11:17 Pulse Ox 100 03/15/18 12:12 - Medical History PMH: No Chronic Diseases - Surgical History Surgical History: No Surg Hx - Family History Family History: States: Unknown Family Hx - Home Medications Home Medications: Ambulatory Orders Medication Instructions Recorded Naproxen [Naprosyn] 500 mg PO BID PRN #15 tablet 08/05/17 Cyclobenzaprine [Cyclobenzaprine 10 mg PO TID PRN #15 tab 12/23/17 HCl] Naproxen 500 mg PO BID #30 tab 12/23/17 Meloxicam [Mobic] 15 mg PO DAILY #14 tab 02/10/18 Diazepam [Valium] 2 mg PO BID PRN #6 tab 03/15/18 - Allergies Allergies/Adverse Reactions: Allergies Allergy/AdvReac Type Severity Reaction Status Date / Time No Known Allergies Allergy Verified 03/15/18 11:24 Review of Systems ROS Statement: Except As Marked, All Systems Reviewed And Found Negative Constitutional: Negative for: Fever Cardiovascular: Positive for: Chest Pain Respiratory: Negative for: Shortness of Breath Gastrointestinal: Negative for: Vomiting, Diarrhea Musculoskeletal: Positive for: Back Pain, Leg Pain Neurological: Negative for: Weakness, Numbness Physical Exam - Reviewed Nursing Documentation Reviewed: Yes Vital Signs Reviewed: Yes - Physical Exam Appears: Positive for: Non-toxic, No Acute Distress Head Exam: Positive for: ATRAUMATIC, NORMAL INSPECTION, NORMOCEPHALIC Skin: Positive for: Normal Color, Warm, Dry Eye Exam: Positive for: Normal appearance, EOMI, PERRL ENT: Positive for: Normal ENT Inspection Neck: Positive for: Normal, Painless ROM, Supple Cardiovascular/Chest: Positive for: Regular Rate, Rhythm. Negative for: Chest Non Tender ((+) mild anterior chest wall tenderness to palpation) Respiratory: Positive for: Normal Breath Sounds. Negative for: Wheezing Pulses-Dorsalis Pedis (L): 2+ Pulses-Dorsalis Pedis (R): 2+ Pulses-Radial (L): 2+ Pulses-Radial (R): 2+ Gastrointestinal/Abdominal: Positive for: Normal Exam, Soft. Negative for: Tenderness Back: Positive for: Normal Inspection, Other (mild para-thoracic tenderness). Negative for: L CVA Tenderness, R CVA Tenderness, Vertebral Tenderness Extremity: Positive for: Normal ROM, Calf Tenderness (mild calf tenderness), Capillary Refill (< 2 seconds). Negative for: Pedal Edema, Deformity, Swelling Neurologic/Psych: Positive for: Alert, Oriented. Negative for: Motor/Sensory Deficits - Laboratory Results Result Diagrams: 03/15/18 12:47 03/15/18 12:47 Interpretation Of Abn Labs: no acute - ECG ECG: Positive for: Interpreted By Me, Viewed By Me ECG Rhythm: Positive for: Normal QRS, Normal ST Segment, Sinus Rhythm O2 Sat by Pulse Oximetry: 100 (RA) Pulse Ox Interpretation: Normal - Radiology X-Ray: Interpreted by Me, Viewed By Me X-Ray Interpretation: No Acute Disease - CT Scan/US us Other Rad Studies (CT/US): Radiology Report Reviewed Other Rad Interpretation: no acute - Progress ED Course And Treament: 1414: Pt. with no acute issues. Stable. AAOx3. Pain free. Tolerated PO. Fu with pcp. Medical Decision Making Medical Decision Making: Impression: Musculoskeletal pain, r/o electrolyte imbalance Plan: -- Labs -- UPreg -- US Doppler BL Lower extremities -- CXR -- XR T-Spine -- EKG -- Valium 5mg PO -- Toradol 15mg IVP -- IV Fluids Scribe Attestation: Documented by Jerrica Wade acting as a scribe for Pawel Orozco MD Provider Attestation: All medical record entries made by the Scribe were at my direction and personally dictated by me. I have reviewed the chart and agree that the record accurately reflects my personal performance of the history, physical exam, medical decision making, and the department course for this patient. I have also personally directed, reviewed, and agree with the discharge instructions and disposition. Disposition - Clinical Impression Clinical Impression: Musculoskeletal chest pain, Muscle strain - Patient ED Disposition Is Patient to be Admitted: No Counseled Patient/Family Regarding: Studies Performed, Diagnosis, Need For Followup, Rx Given - Disposition Referrals: [facility] [Outside] - 03/16/18 Disposition: Routine/Home Disposition Time: 14:16 Condition: STABLE Additional Instructions: Return if not better in 3 days. Prescriptions: Diazepam [Valium] 2 mg PO BID PRN #6 tab PRN Reason: Muscle Spasm Instructions: Muscle Strain
[2018-03-15 12:51] LABS: BASO # 0.1 K/uL (0.0-0.2); BASO % 0.7 % (0.0-2.0); EOS # 0.1 K/uL (0.0-0.7); EOS % 0.8 % (0.0-4.0); HEMOGLOBIN 10.8 g/dL (12.0-16.0); LYMPH # 2.6 K/uL (1.0-4.3); LYMPH % 21.8 % (20.0-40.0); MEAN CORPUSCULAR HEMOGLOBIN 26.9 pg (27.0-31.0); MEAN CORPUSCULAR HGB CONC 31.6 g/dL (33.0-37.0); MEAN PLATELET VOLUME 8.7 fl (7.2-11.7); MONO # 0.8 K/uL (0.0-0.8); MONO % 6.3 % (0.0-10.0); NEUT # 8.5 K/uL (1.8-7.0); NEUT % 70.4 % (50.0-75.0); RBC 4.02 Mil/uL (3.80-5.20); RED CELL DISTRIBUTION WIDTH 15.7 % (11.5-14.5)
[2018-03-15 14:02] LABS: ALB/GLOB RATIO 1.1 (1.0-2.1); ALBUMIN 3.5 g/dL (3.5-5.0); ALT/SGPT 31 U/L (9-52); AST/SGOT 21 U/L (14-36); BLOOD UREA NITROGEN 8 mg/dl (7-17); CALCIUM 8.7 mg/dL (8.4-10.2); GFR AFRICAN-AMERICAN > 60; GFR NON-AFRICAN AMERICAN > 60
--- NOTE | 2018-03-15 14:25 | US ---
PROCEDURE: Bilateral lower extremity venous duplex Doppler. HISTORY: r/o dvt COMPARISON: None available. TECHNIQUE: Bilateral common femoral, superficial femoral, popliteal and posterior tibial veins were evaluated. Flow was assessed with color Doppler, compressibility, assessment of phasic flow and augmentation response. FINDINGS: COMMON FEMORAL VEIN: Right CFV: Unremarkable. Left CFV: Unremarkable. SUPERFICIAL FEMORAL VEIN: Right SFV: Unremarkable. Left SFV: Unremarkable. POPLITEAL VEIN: Right Popliteal: Unremarkable. Left Popliteal: Unremarkable. POSTERIOR TIBIAL VEIN: Right PTV: Unremarkable. Left PTV: Unremarkable. OTHER FINDINGS: Bilateral several femoral junctions appear patent and competent. IMPRESSION: No sonographic evidence of deep venous thrombosis bilateral lower extremities.
[2018-03-15 15:36] VITALS: BP 115/86; PULSE 76; RESP 18
--- NOTE | 2018-03-15 16:49 | RAD ---
HISTORY: Chest and rib pain. COMPARISON: 02/10/2018 TECHNIQUE: Chest PA and lateral FINDINGS: LUNGS: No active pulmonary disease. PLEURA: No significant pleural effusion identified. No pneumothorax apparent. CARDIOVASCULAR: Normal. OSSEOUS STRUCTURES: No significant abnormalities. VISUALIZED UPPER ABDOMEN: Normal. OTHER FINDINGS: None. IMPRESSION: No active disease. No significant interval change compared to the prior examination(s). Concordant results with the preliminary interpretation rendered by the emergency department physician procedure.
[2018-03-16 07:36] LABS: SQUAMOUS EPITHIAL 1 /hpf (0-5); URINE BILIRUBIN NEGATIVE (NEGATIVE); URINE BLOOD NEGATIVE (NEGATIVE); URINE CLARITY CLEAR (Clear); URINE COLOR COLORLESS (YELLOW); URINE GLUCOSE (UA) NEG (Normal); URINE LEUKOCYTE ESTERASE SMALL Leu/uL (Negative); URINE PROTEIN NEGATIVE (NEGATIVE); URINE UROBILINOGEN 0.2-1.0 mg/dL (0.2-1.0)
--- NOTE | 2018-03-16 10:39 | CARD ---
APPROVED REPORT EKG Measurement Heart [id number] <Conclusion> Sinus rhythm with short IN Otherwise normal ECG
== END 2018-03-15 15:15 | disposition home or self-care (01) ==
LOC: H.ER 11:02
DX: R07.89 Other chest pain (principal)
CPT/HCPCS: 71046; 80053; 81003; 81025; 82330; 82550; 83735; 84100; 84484; 85025; 93005; 93970; 96361; 96374; 99284; J1885; J7040

== ENCOUNTER 2018-03-16 14:50 | Emergency (ER) | payer OTHER ==
[2018-03-16 14:50] VITALS: BMI 23.4
[2018-03-16 15:06] VITALS: RESP 16
[2018-03-16] MEDS ORDERED: Pantoprazole 40 mg EC Tab PO STA (15:49)
--- NOTE | 2018-03-16 15:52 | ED PDOC ---
HPI: Abdomen Chief Complaint (Nursing): Chest Pain History Per: Patient Onset/Duration Of Symptoms: Persistent Current Symptoms Are (Timing): Still Present Severity: Moderate Location Of Pain/Discomfort: Epigastric Quality Of Discomfort: Burning Associated Symptoms: Nausea. denies: Fever, Vomiting, Diarrhea Additional Complaint(s): Burning epigastric pain radiating up towards throat and to back. Worse when lying flat. Assoc with nausea but no vomiting or SOB.Seen yesterday for same but no improvement. Past Medical History Vital Signs: Last Vital Signs Temp 98.0 F 03/16/18 15:04 Pulse 82 03/16/18 15:04 Resp 16 03/16/18 15:04 BP 125/74 03/16/18 15:04 Pulse Ox 100 03/16/18 15:52 - Medical History PMH: No Chronic Diseases - Family History Family History: States: Unknown Family Hx - Home Medications Home Medications: Ambulatory Orders Medication Instructions Recorded Naproxen [Naprosyn] 500 mg PO BID PRN #15 tablet 08/05/17 Cyclobenzaprine [Cyclobenzaprine 10 mg PO TID PRN #15 tab 12/23/17 HCl] Naproxen 500 mg PO BID #30 tab 12/23/17 Meloxicam [Mobic] 15 mg PO DAILY #14 tab 02/10/18 Diazepam [Valium] 2 mg PO BID PRN #6 tab 03/15/18 Pantoprazole Sodium [Protonix] 40 mg PO DAILY #30 tablet. 03/16/18 - Allergies Allergies/Adverse Reactions: Allergies Allergy/AdvReac Type Severity Reaction Status Date / Time No Known Allergies Allergy Verified 03/16/18 15:04 Review of Systems ROS Statement: Except As Marked, All Systems Reviewed And Found Negative Constitutional: Negative for: Fever Respiratory: Negative for: Shortness of Breath Gastrointestinal: Positive for: Nausea, Abdominal Pain Musculoskeletal: Positive for: Back Pain Physical Exam - Reviewed Nursing Documentation Reviewed: Yes Vital Signs Reviewed: Yes - Physical Exam Appears: Positive for: Non-toxic, No Acute Distress Head Exam: Positive for: ATRAUMATIC, NORMAL INSPECTION, NORMOCEPHALIC Skin: Positive for: Normal Color, Warm, DRY Eye Exam: Positive for: EOMI, Normal appearance, PERRL ENT: Positive for: Normal ENT Inspection Neck: Positive for: Normal, Painless ROM Cardiovascular/Chest: Positive for: Regular Rate, Rhythm Respiratory: Positive for: CNT, Normal Breath Sounds Gastrointestinal/Abdominal: Positive for: Soft, Tenderness (Epigastric) Back: Positive for: Normal Inspection Extremity: Positive for: Normal ROM Neurologic/Psych: Positive for: Alert, Oriented - ECG O2 Sat by Pulse Oximetry: 100 Disposition - Clinical Impression Clinical Impression: GERD (gastroesophageal reflux disease) - Patient ED Disposition Is Patient to be Admitted: No Counseled Patient/Family Regarding: Diagnosis, Need For Followup, Rx Given - Disposition Referrals: [facility] [Outside] Disposition: Routine/Home Disposition Time: 17:26 Condition: FAIR Prescriptions: Pantoprazole Sodium [Protonix] 40 mg PO DAILY #30 tablet.dr Instructions: Acid Reflux (Gastroesophageal Reflux Disease) in Adults Forms: [facility] (Slovak)
[2018-03-16] MEDS ORDERED: Pantoprazole 40 mg EC Tab PO ONE (16:15)
[2018-03-16 19:00] VITALS: BP 121/76; PULSE 84; TEMP 98.4; O2SAT 99
== END 2018-03-16 19:00 | disposition home or self-care (01) ==
LOC: H.ER 14:50
DX: K21.9 Gastro-esophageal reflux disease without esophagitis (principal)

== ENCOUNTER 2018-07-17 10:38 | Day surgery (SDC) | payer SELFPAY ==
[2018-07-17] MEDS ORDERED: Lactated Ringer's 500 ML IV ONE (10:56)
[2018-07-17] MEDS ORDERED: Propofol 10 mg/ml Inj (20 ML) ONE (13:13)
[2018-07-17 13:52] VITALS: TEMP 97.4; O2SAT 100
[2018-07-17 14:07] VITALS: BP 97/68; PULSE 78; RESP 16
== END 2018-07-17 14:50 | disposition home or self-care (01) ==
LOC: H.ENDO 10:38
PROVIDERS: ATTEND Internal Medicine Gastroenterology
DX: K29.70 Gastritis, unspecified, without bleeding (principal); B96.81 Helicobacter pylori [H. pylori] as the cause of diseases classified elsewhere; K64.8 Other hemorrhoids; D50.9 Iron deficiency anemia, unspecified
CPT/HCPCS: 43239; 45378; 88305; J2001; J2704; J7120

== ENCOUNTER 2018-11-23 17:31 | Emergency (ER) | payer SELFPAY ==
[2018-11-23 17:31] VITALS: BMI 23.4
[2018-11-23 19:04] VITALS: RESP 18; O2SAT 100
--- NOTE | 2018-11-23 20:15 | ED PDOC ---
HPI: General Adult Time Seen by Provider: 11/23/18 19:55 Chief Complaint (Nursing): Flu-like Symptoms Chief Complaint (Provider): Cold, congestion History Per: Patient History/Exam Limitations: no limitations Onset/Duration Of Symptoms: Days (4x days) Current Symptoms Are (Timing): Still Present Additional Complaint(s): 38 year old female with no past medical history presents to the ED for an evaluation of bodyaches, headaches, dizziness, throat pain, congestion, pain with swallowing, and nausea ongoing for 4x day. Patient reports taking over the counter cold medications and leftover amoxicillin from a previous prescription months ago. Patient's last dose of any medication was ibuprofen this morning. Patient also reports having sick contacts: multiple family members (including her sister who is also being evaluated in the ED for the same symptoms). Last known menstrual period: current. Otherwise: (-) recent travel, (-) vomiting, (-) visual changes, (-) numbness, (-) weakness, (-) cough, (-) shortness of breath, (-) chest pain. PMD: None. Past Medical History Reviewed: Historical Data, Nursing Documentation, Vital Signs Vital Signs: Last Vital Signs Temp 98.0 F 11/23/18 19:02 Pulse 80 11/23/18 19:02 Resp 18 11/23/18 19:02 BP 121/80 11/23/18 19:02 Pulse Ox 100 11/23/18 19:02 - Medical History PMH: Anemia - Surgical History Surgical History: No Surg Hx - Family History Family History: States: No Known Family Hx - Social History Current smoker - smoking cessation education provided: No Alcohol: None Drugs: Denies - Home Medications Home Medications: Ambulatory Orders Medication Instructions Recorded Acetaminophen [Acetaminophen 8 650 mg PO Q8 PRN #21 tablet.er 11/23/18 Hour] Ondansetron ODT [Zofran ODT] 4 mg PO Q6 PRN #12 odt 11/23/18 Oseltamivir Phosphate [Tamiflu] 75 mg PO BID #10 capsule 11/23/18 RX: Ibuprofen [Motrin Tab] 600 mg PO Q6 PRN #20 tab 11/23/18 RX: Meclizine [Meclizine*] 25 mg PO Q6 PRN #12 tab 11/23/18 - Allergies Allergies/Adverse Reactions: Allergies Allergy/AdvReac Type Severity Reaction Status Date / Time No Known Allergies Allergy Verified 11/23/18 19:02 Review of Systems ROS Statement: Except As Marked, All Systems Reviewed And Found Negative Constitutional: Positive for: Fever, Chills, Other (bodyaches) Eyes: Negative for: Vision Change ENT: Positive for: Nose Congestion, Throat Pain (pain with swallowing) Cardiovascular: Negative for: Chest Pain Respiratory: Negative for: Cough, Shortness of Breath Gastrointestinal: Positive for: Nausea. Negative for: Vomiting Neurological: Positive for: Headache, Dizziness. Negative for: Weakness, Numbness Physical Exam - Reviewed Nursing Documentation Reviewed: Yes Vital Signs Reviewed: Yes - Physical Exam Comments: GENERAL APPEARANCE: Patient is awake, alert, oriented x 3, in no acute distress. SKIN: Warm, dry; (-) cyanosis. EYES: (-) conjunctival pallor. ENMT: Mucous membranes moist. Airway patent: (-) stridor. Pharynx: (+) faint pharyngeal erythema (-) swelling, (-) exudate. (+)Clear rhinorrhea. NECK: Supple, FROM (-) tenderness, (-) stiffness, (-) lymphadenopathy. CHEST AND RESPIRATORY: (-) rhonchi, (-) rales, (-) wheezes; breath sounds equal bilaterally. HEART AND CARDIOVASCULAR: (-) irregularity ABDOMEN AND GI: Soft; (-) tenderness (-) distention (-) CVA tenderness. EXTREMITIES: (-) deformity NEURO AND PSYCH: Mental status as above. Cranial nerves grossly intact; strength symmetric. Gait: steady. Speech: clear. (-) facial asymmetry (-) aphasia. - ECG O2 Sat by Pulse Oximetry: 100 (RA) Pulse Ox Interpretation: Normal Medical Decision Making Medical Decision Makin:55 Clinical impression:: 38 year old female with bodyaches, sore throat, and headache, to consider influenza. Initial plan: * throat culture * influenza AB * rapid strep group A antigen * antivert 25 mg PO once * tylenol 325 mg tab 650 mg PO * zofran ODT 4 mg PO 2114 Rapid Strep: negative influenza: negative 2139 In light of sick contacts being (+) influenza in ED, Tamiflu 75mg PO administered. Patient requesting additional medication for bodyaches/headache. Ibuprofen 600mg PO ordered. On re-evaluation, patient reports improvement of symptoms. On exam, patient remains AAOx3, in no acute distress. Vitals stable. Lab/Diagnostic results d/w the patient in great detail. Diagnosis of clinical influenza, body aches, sore throat, headache/dizziness d/w the patient. Based on history, exam and diagnostic results, plan will be for outpatient follow up with PMD/clinic. Patient instructed to follow-up with pmd / referral provided / the clinic in 1- 2 days without fail. Advised to take medication as prescribed. Return to the emergency room at any time for any new or worsening symptoms. Patient states she fully agrees with and understands discharge instructions. States that she agrees with the plan and disposition. Verbalized and repeated discharge instructions and plan. I have given the patient opportunity to ask any additional questions. Scribe Attestation: Documented byMarisel Tate, acting as a scribe for Marisel Strickland Provider Scribe Attestation: All medical record entries made by the Scribe were at my direction and personally dictated by me. I have reviewed the chart and agree that the record accurately reflects my personal performance of the history, physical exam, medical decision making, and the department course for this patient. I have also personally directed, reviewed, and agree with the discharge instructions and disposition. Disposition - Clinical Impression Clinical Impression: Influenza, Body aches, Sore throat, Dizziness, Nausea, Head ache - Patient ED Disposition Is Patient to be Admitted: No Counseled Patient/Family Regarding: Studies Performed, Diagnosis, Need For Followup, Rx Given - Disposition Referrals: [facility] [Outside] Disposition: Routine/Home Disposition Time: 21:45 Condition: STABLE Additional Instructions: The emergency medical care you received today was directed at your acute symptoms. If you were prescribed any medication, please fill it and take as directed. It may take several days for your symptoms to resolve. Return to the Emergency Department if your symptoms worsen, do not improve, or if you have any other problems. Please contact your doctor in 2 days for re-evaluation and follow up / or call one of the physicians/clinics you have been referred to that are listed on the Patient Visit Information form that is included in your discharge packet. Bring any paperwork you were given at discharge with you along with any medications you are taking to your follow up visit. Our treatment cannot replace ongoing medical care by a primary care provider (PCP) outside of the emergency depa rtment. Prescriptions: Acetaminophen [Acetaminophen 8 Hour] 650 mg PO Q8 PRN #21 tablet.er PRN Reason: fever, pain RX: Ibuprofen [Motrin Tab] 600 mg PO Q6 PRN #20 tab PRN Reason: Pain, Moderate (4-7) RX: Meclizine [Meclizine*] 25 mg PO Q6 PRN #12 tab PRN Reason: Dizziness Ondansetron ODT [Zofran ODT] 4 mg PO Q6 PRN #12 odt PRN Reason: Nausea/Vomiting Oseltamivir Phosphate [Tamiflu] 75 mg PO BID #10 capsule Instructions: Flu, Sore Throat in Adults, Muscle and Bone Pain (DC), Headache, Adult (DC), Dizziness, Nonvertigo, (DC), Viral Pharyngitis (DC) Forms: [employer] (Guatemalan) Print Language: KAZAKH - POA Present On Arrival: None Results - Lab Results Lab Results: 11/23/18 11/23/18 20:20 20:20 Influenza Typ A,B (EIA) Negative for flu a/b Grp A Beta Strep Ag Negative
[2018-11-23 22:15] VITALS: BP 128/82; PULSE 86; TEMP 98.2
== END 2018-11-23 22:15 | disposition home or self-care (01) ==
LOC: H.ER 17:31
DX: J11.1 Influenza due to unidentified influenza virus with other respiratory manifestations (principal); M79.10 Myalgia, unspecified site; J02.9 Acute pharyngitis, unspecified; R42 Dizziness and giddiness; R11.0 Nausea

== ENCOUNTER 2018-12-04 13:25 | Emergency (ER) | payer SELFPAY ==
[2018-12-04 13:25] VITALS: BMI 23.4
[2018-12-04] MEDS ORDERED: Sodium Chloride 0.9% 1,000 ML IV STA ×2 (13:48→17:12)
--- NOTE | 2018-12-04 13:58 | ED PDOC ---
History of Present Illness History of Present Illness: 38yo female c/o dizziness, headache, productive cough and congestion ongoing and worsening since late october. Seen here early November had neg flu test but treated empirically w tamiflu and supportive medications, but now worsening, with significant dizziness/presyncope. LMP Nov 21. <Joe Tinoco III - Last Filed: 12/04/18 13:59> HPI: Influenza Chief Complaint (Provider): body pain, flank pain History Per: Patient Symptoms include: other (dizzy). denies: vomiting, syncope, chest pain, difficulty breathing, seizure <Joe Tinoco III - Last Filed: 12/04/18 13:59> <Lencho Hamilton - Last Filed: 12/04/18 20:38> Time Seen by Provider: 12/04/18 13:45 Chief Complaint: Cough, Cold, Congestion Past Medical History Reviewed: Historical Data, Nursing Documentation, Vital Signs Vital Signs: Last Vital Signs Temp 98.1 F 12/04/18 13:42 Pulse 92 H 12/04/18 13:42 Resp 16 12/04/18 13:42 BP 95/57 L 12/04/18 13:42 Pulse Ox 100 12/04/18 13:42 - Medical History PMH: Anemia Denies: Chronic Kidney Disease - Family History Family History: States: Unknown Family Hx <Joe Tinoco III - Last Filed: 12/04/18 13:59> Vital Signs: Last Vital Signs Temp 98.1 F 12/04/18 13:42 Pulse 92 H 12/04/18 13:42 Resp 16 12/04/18 13:42 BP 95/57 L 12/04/18 13:42 Pulse Ox 100 12/04/18 14:01 <Lencho Hamilton - Last Filed: 12/04/18 20:38> - Home Medications Home Medications: Ambulatory Orders Medication Instructions Recorded Acetaminophen [Acetaminophen 8 650 mg PO Q8 PRN #21 tablet.er 11/23/18 Hour] Ondansetron ODT [Zofran ODT] 4 mg PO Q6 PRN #12 odt 11/23/18 Oseltamivir Phosphate [Tamiflu] 75 mg PO BID #10 capsule 11/23/18 RX: Ibuprofen [Motrin Tab] 600 mg PO Q6 PRN #20 tab 11/23/18 RX: Meclizine [Meclizine*] 25 mg PO Q6 PRN #12 tab 11/23/18 Fluticasone Propionate [Flonase] 2 spr NS DAILY PRN #1 bottle 12/04/18 Sulfamethoxazole/Trimethoprim 1 tab PO BID #14 tab 12/04/18 [Bactrim DS 800 mg-160 mg] - Allergies Allergies/Adverse Reactions: Allergies Allergy/AdvReac Type Severity Reaction Status Date / Time No Known Allergies Allergy Verified 12/04/18 13:42 Review of Systems Constitutional: Negative for: Fever Cardiovascular: Positive for: Light Headedness Respiratory: Negative for: Cough Gastrointestinal: Negative for: Abdominal Pain Musculoskeletal: Positive for: Back Pain, Leg Pain. Negative for: Neck Pain, Shoulder Pain Skin: Negative for: Rash, Lesions Neurological: Positive for: Headache, Dizziness. Negative for: Weakness, Numbness <Joe Tinoco III - Last Filed: 12/04/18 13:59> Physical Exam - Physical Exam Appears: Positive for: Well, Non-toxic, No Acute Distress Skin: Positive for: Normal Color, Warm. Negative for: Rash Eye Exam: Positive for: Normal appearance ENT: Positive for: Normal ENT Inspection Neck: Positive for: Normal, Painless ROM Cardiovascular/Chest: Positive for: Regular Rate, Rhythm Respiratory: Positive for: Normal Breath Sounds. Negative for: Respiratory Distress Gastrointestinal/Abdominal: Positive for: Normal Exam, Soft. Negative for: Tenderness Neurologic/Psych: Positive for: Alert, Oriented (x3) <Lencho Hamilton - Last Filed: 12/04/18 20:38> Medical Decision Making Medical Decision Makin On my initial evaluation, pt. in no distress. No CVA tenderness b/l. Urine C&S ordered. 1514 On re-evaluation, vital signs improved. Reports no relief in frontal headache. CT head w/o contrast, toradol 30mg IV, additional IV NS bolus ordered. Pt. also reports having b/l facial with thick nasal congestion for several days. Denies head injury, LOC. Pt. observed multiple times as I passed her room to either be eating or sleeping comfortably. Also seen drinking juice. 1814 On my final evaluation, pt. seen sleeping comfortably. Easily arousable to non-painful tactile stimuli. States headache has improved but is still present. Informed of results and advised to f/u with PMD for further evaluation but is to return to ED immediately if symptoms worsen. Pt. verbalized correct understanding of plan and care. <LizbethjollyLencho - Last Filed: 12/04/18 20:38> - ECG O2 Sat by Pulse Oximetry: 100 <Jeo Tinoco J III - Last Filed: 12/04/18 13:59> - Laboratory Results Result Diagrams: 12/04/18 14:50 12/04/18 14:50 <AlfonsoLencho Farzad - Last Filed: 12/04/18 20:38> Disposition <EarnestJoe Mcfarlane III - Last Filed: 12/04/18 13:59> - Patient ED Disposition Is Patient to be Admitted: No - Disposition Disposition: Routine/Home Disposition Time: 18:30 <LizbethadeLencho farrell - Last Filed: 12/04/18 20:38> - Clinical Impression Clinical Impression: Sinusitis, UTI (urinary tract infection) - Disposition Referrals: [facility] within [facility] [Outside] Condition: IMPROVED Additional Instructions: FOLLOW UP WITH PMD FOR FURTHER EVALUATION RETURN TO ED IMMEDIATELY IF SYMPTOMS WORSEN ANNAMARIE GARCIA, thank you for letting us take care of you today. Your provider was Cass Lemus MD and you were treated for COUGH/DIZZINESS. The emergency medical care you received today was directed at your acute symptoms. If you were prescribed any medication, please fill it and take as directed. It may take sev eral days for your symptoms to resolve. Return to the Emergency Department if your symptoms worsen, do not improve, or if you have any other problems. Please contact your doctor or call one of the physicians/clinics you have been referred to that are listed on the Patient Visit Information form that is included in your discharge packet. Bring any paperwork you were given at discharge with you along with any medications you are taking to your follow up visit. Our treatment cannot replace ongoing medical care by a primary care provider outside of the emergency department. Thank you for allowing the [facility] team to be part of your care today. If you had an X-Ray or CT scan: A Radiologist will review the ED reading if any change in treatment is needed we will contact you. If you had a blood, urine, or wound culture: It will take several days for the results, if any change in treatment is needed we will contact you. If you had an STI test: It will take 48 hours for the results. Please call after 1 week if you have not heard back. Prescriptions: Fluticasone Propionate [Flonase] 2 spr NS DAILY PRN #1 bottle PRN Reason: Allergy Symptoms Sulfamethoxazole/Trimethoprim [Bactrim DS 800 mg-160 mg] 1 tab PO BID #14 tab Instructions: Sinusitis, Adult (DC) Forms: [employer] (Chinese)
[2018-12-04 14:35] LABS: SQUAMOUS EPITHIAL 4 /hpf (0-5); URINE BACTERIA RARE (<OCC); URINE BILIRUBIN NEGATIVE (NEGATIVE); URINE BLOOD NEGATIVE (NEGATIVE); URINE CLARITY SLIGHTY-CLOUDY (Clear); URINE GLUCOSE (UA) NEG (NEGATIVE); URINE LEUKOCYTE ESTERASE LARGE Leu/uL (Negative); URINE PROTEIN NEGATIVE (NEGATIVE); URINE UROBILINOGEN 0.2-1.0 mg/dL (0.2-1.0)
--- NOTE | 2018-12-04 14:48 | RAD ---
Date of service: 12/04/2018 HISTORY: chest pain/ r/o infiltrate COMPARISON: The made with prior study 03/15/2018 TECHNIQUE: Chest PA and lateral FINDINGS: LUNGS: No active pulmonary disease. PLEURA: No significant pleural effusion identified. No pneumothorax apparent. CARDIOVASCULAR: No aortic atherosclerotic calcification present. Normal cardiac size. No pulmonary vascular congestion. OSSEOUS STRUCTURES: Minor scoliotic deformity. VISUALIZED UPPER ABDOMEN: Normal. OTHER FINDINGS: None. IMPRESSION: No active disease.
[2018-12-04 14:51] LABS: URINE COLOR YELLOW (YELLOW)
[2018-12-04 15:52] LABS: BASO # 0.1 K/uL (0.0-0.2); BASO % 0.9 % (0.0-2.0); EOS # 0.3 K/uL (0.0-0.7); EOS % 4.8 % (0.0-4.0); HEMOGLOBIN 11.1 g/dL (12.0-16.0); LYMPH # 1.7 K/uL (1.0-4.3); LYMPH % 23.8 % (20.0-40.0); MEAN CELL VOLUME 90.7 fl (81.0-99.0); MEAN CORPUSCULAR HEMOGLOBIN 29.6 pg (27.0-31.0); MEAN CORPUSCULAR HGB CONC 32.7 g/dL (33.0-37.0); MEAN PLATELET VOLUME 8.6 fl (7.2-11.7); MONO # 0.7 K/uL (0.0-0.8); MONO % 10.1 % (0.0-10.0); NEUT # 4.4 K/uL (1.8-7.0); NEUT % 60.4 % (50.0-75.0); NRBC % 0.1 % (0.0-0.0); RBC 3.74 Mil/uL (3.80-5.20); RED CELL DISTRIBUTION WIDTH 13.9 % (11.5-14.5); WHITE BLOOD COUNT 7.2 K/uL (4.8-10.8)
[2018-12-04 16:09] LABS: ALB/GLOB RATIO 1.2 (1.0-2.1); ALBUMIN 3.6 g/dL (3.5-5.0); ALT/SGPT 37 U/L (9-52); AST/SGOT 40 U/L (14-36); BLOOD UREA NITROGEN 9 mg/dl (7-17); CALCIUM 8.7 mg/dL (8.4-10.2); GFR NON-AFRICAN AMERICAN > 60
[2018-12-04 16:26] LABS: B-TYPE NATRIURETIC PEPTIDE 46.1 pg/ml (0-450)
[2018-12-04 16:46] VITALS: RESP 18
--- NOTE | 2018-12-04 17:59 | CT ---
Date of service: 12/04/2018 PROCEDURE: CT HEAD WITHOUT CONTRAST. HISTORY: headache COMPARISON: Noncontrast head CT performed 04/05/17 TECHNIQUE: Axial computed tomography images were obtained through the head/brain without intravenous contrast. Radiation dose: Total exam DLP = 658.61 mGy-cm. This CT exam was performed using one or more of the following dose reduction techniques: Automated exposure control, adjustment of the mA and/or kV according to patient size, and/or use of iterative reconstruction technique. FINDINGS: HEMORRHAGE: No intracranial hemorrhage. BRAIN: No mass effect or edema. The oleary-white matter differentiation appears intact. Please note that MRI with diffusion imaging is more sensitive in the detection of acute ischemic event. VENTRICLES: No hydrocephalus. CALVARIUM: Unremarkable. PARANASAL SINUSES: Mucosal thickening of the ethmoid air cells. MASTOID AIR CELLS: Unremarkable as visualized. No inflammatory changes. OTHER FINDINGS: None. IMPRESSION: No acute intracranial pathology identified. Mucosal thickening of the ethmoid air cells.
--- NOTE | 2018-12-04 18:54 | CARD ---
APPROVED REPORT Date of service: 12/04/2018 EKG Measurement Heart [id number] <Conclusion> Normal sinus rhythm Normal ECG
[2018-12-04 20:27] VITALS: BP 109/73; PULSE 70; TEMP 98.1; O2SAT 100
== END 2018-12-04 20:36 | disposition home or self-care (01) ==
LOC: H.ER 13:25
DX: J01.90 Acute sinusitis, unspecified (principal)
CPT/HCPCS: 70450; 71046; 80053; 81003; 81025; 83880; 84484; 85025; 86308; 86664; 86665; 87070; 87086; 87430; 93005; 96361; 96374; 99283; J1885; J7030

== ENCOUNTER 2018-12-12 17:50 | Emergency (ER) | payer SELFPAY ==
[2018-12-12 17:50] VITALS: BMI 23.4
[2018-12-12 18:00] VITALS: BP 103/76; PULSE 91; RESP 16; TEMP 98.1; O2SAT 100
--- NOTE | 2018-12-12 19:31 | ED PDOC ---
HPI: Influenza Time Seen by Provider: 12/12/18 18:55 Chief Complaint: Flu-like Symptoms Chief Complaint (Provider): Flu-like Symptoms History Per: Patient Exam Limitations: no limitations Onset/Duration Of Symptoms: Days (x2) Sick Contacts (Context): Family Member(s) (son) Additional complaint(s):: Patient is a 38 y/o female with a PMHx of anemia and diabetes who presents to the ED for evaluation of a fever and cough for the past month. Patient admits to generalized body aches, headaches, and sore throat. Patient denies vomiting and diarrhea. Of note, patient came to the ED with 5 y/o son, who for the past two days has been exhibiting similar symptoms. PCP: None Provided Past Medical History Reviewed: Historical Data, Nursing Documentation, Vital Signs Vital Signs: Last Vital Signs Temp 98.1 F 12/12/18 17:58 Pulse 91 H 12/12/18 17:58 Resp 16 12/12/18 17:58 BP 103/76 12/12/18 17:58 Pulse Ox 100 12/12/18 17:58 - Medical History PMH: Anemia, Diabetes Denies: Chronic Kidney Disease - Surgical History Surgical History: No Surg Hx - Family History Family History: States: Unknown Family Hx - Immunization History Hx Influenza Vaccination: No - Home Medications Home Medications: Ambulatory Orders Medication Instructions Recorded Acetaminophen [Acetaminophen 8 650 mg PO Q8 PRN #21 tablet.er 11/23/18 Hour] Ibuprofen [Motrin Tab] 600 mg PO Q6 PRN #20 tab 11/23/18 Meclizine [Meclizine*] 25 mg PO Q6 PRN #12 tab 11/23/18 Ondansetron ODT [Zofran ODT] 4 mg PO Q6 PRN #12 odt 11/23/18 Oseltamivir Phosphate [Tamiflu] 75 mg PO BID #10 capsule 11/23/18 Fluticasone Propionate [Flonase] 2 spr NS DAILY PRN #1 bottle 12/04/18 Sulfamethoxazole/Trimethoprim 1 tab PO BID #14 tab 12/04/18 [Bactrim DS 800 mg-160 mg] Penicillin VK [Penicillin VK Tab] 500 mg PO Q6 #40 tab 12/09/18 Ibuprofen [Motrin] 600 mg PO Q8 PRN #21 tab 12/12/18 Oseltamivir Cap [Tamiflu] 75 mg PO BID #10 cap 12/12/18 - Allergies Allergies/Adverse Reactions: Allergies Allergy/AdvReac Type Severity Reaction Status Date / Time No Known Allergies Allergy Verified 12/04/18 13:42 Review of Systems ROS Statement: Except As Marked, All Systems Reviewed And Found Negative Constitutional: Positive for: Fever, Other (generalized body aches) ENT: Positive for: Throat Pain (soreness) Respiratory: Positive for: Cough Gastrointestinal: Negative for: Vomiting, Diarrhea Neurological: Positive for: Headache Physical Exam - Reviewed Nursing Documentation Reviewed: Yes Vital Signs Reviewed: Yes - Physical Exam Appears: Positive for: Well, No Acute Distress Head Exam: Positive for: ATRAUMATIC, NORMAL INSPECTION, NORMOCEPHALIC Skin: Positive for: Normal Color, Warm Eye Exam: Positive for: EOMI, Normal appearance, PERRL ENT: Positive for: Normal ENT Inspection Neck: Positive for: Normal, Painless ROM, Supple Cardiovascular/Chest: Positive for: Regular Rate, Rhythm. Negative for: Murmur Respiratory: Positive for: Normal Breath Sounds. Negative for: Respiratory Distress Gastrointestinal/Abdominal: Positive for: Normal Exam, Soft. Negative for: Tenderness Extremity: Positive for: Normal ROM. Negative for: Pedal Edema, Deformity Neurologic/Psych: Positive for: Alert, Oriented. Negative for: Motor/Sensory Deficits Medical Decision Making Medical Decision Making: Time: 1899 Plan: Influenza A B Rapid Strep Group A Antigen Scribe Attestation: Documented by Cl Aguero, acting as a scribe for KAREN Gustafson. Provider Scribe Attestation: All medical record entries made by the Scribe were at my direction and personally dictated by me. I have reviewed the chart and agree that the record accurately reflects my personal performance of the history, physical exam, medical decision making, and the department course for this patient. I have also personally directed, reviewed, and agree with the discharge instructions and disposition. - ECG O2 Sat by Pulse Oximetry: 100 (RA) Pulse Ox Interpretation: Normal - Progress ED Course And Treament: rapid strep: neg influenza a/b neg. Disposition - Clinical Impression Clinical Impression: Influenza-like symptoms - Patient ED Disposition Is Patient to be Admitted: No - Disposition Disposition: Routine/Home Disposition Time: 20:35 Condition: FAIR Prescriptions: Ibuprofen [Motrin] 600 mg PO Q8 PRN #21 tab PRN Reason: Pain, Moderate (4-7) Oseltamivir Cap [Tamiflu] 75 mg PO BID #10 cap Instructions: Flu, Adult (DC)
== END 2018-12-12 22:10 | disposition home or self-care (01) ==
LOC: H.ER 17:50
DX: J11.1 Influenza due to unidentified influenza virus with other respiratory manifestations (principal); D64.9 Anemia, unspecified; E11.9 Type 2 diabetes mellitus without complications